=== PATIENT | female | born 1985 | race Caucasian/White ===

== ENCOUNTER 2020-04-21 12:40 | Emergency (ER) | payer OTHER ==
[~2020-04-21] VITALS: Ht 162.6 cm; Wt 120.2 kg
[2020-04-21 12:56] VITALS: BP 142/78
--- NOTE | 2020-04-21 13:11 | NUR ---
Patient being evaluated by Dr. Raines at bedside.
--- NOTE | 2020-04-21 13:12 | NUR ---
37 Y/O PATIENT C/O PELVIC CRAMPING/ NAUSEA AND DIZZINESS FOR A FEW WEEKS. PATIENT STATES HER LMP 04/09/20. DENIES ANY DYSURIA OR BACK PAIN. ONE EPISODE OF VOMITING WAS REPORTED YESTERDAY. ABD IS TENDER AND NOT BLOATED. BOWEL SOUNDS NORMOACTIVE IN ALL QUADRANTS. PATIENT IS AMBULATORY WITH STEADY GAIT. PMH: ANXIETY ALLERGIES: CODEINE
--- NOTE | 2020-04-21 13:22 | NUR ---
US tech at bedside for exam.
[2020-04-21 13:38] LABS: BASOPHILS # (AUTO) 0.1 K/uL (0.00-0.22); EOSINOPHILS # (AUTO) 0.2 K/uL (0-0.4); EOSINOPHILS % (AUTO) 2.1 % (0.0-4.0); HEMATOCRIT 42.5 % (36-48); HEMOGLOBIN 14.2 g/dL (12.0-16.0); LYMPHOCYTES # (AUTO) 2.1 K/uL (2.5-16.5); LYMPHOCYTES % (AUTO) 19.7 % (20.5-51.1); MEAN CORPUSCULAR HEMOGLOBIN 32 pg (27-31); MEAN CORPUSCULAR HGB CONC 34 g/dL (33-37); MEAN CORPUSCULAR VOLUME 94.9 fL (80-94); MONOCYTES # (AUTO) 0.6 K/uL (0.8-1.0); MONOCYTES % (AUTO) 5.1 % (1.7-9.3); NEUTROPHILS # (AUTO) 7.8 K/uL (1.8-7.7); NEUTROPHILS % (AUTO) 72.1 % (42.2-75.2); PLATELET COUNT (AUTO) 236 K/uL (140-450); RED BLOOD CELL COUNT(AUTO) 4.48 MIL/uL (4.20-5.40); RED CELL DISTRIBUTION WIDTH 13.3 % (11.6-13.7); WHITE BLOOD COUNT (AUTO) 10.9 K/uL (4.8-10.8)
[2020-04-21 14:47] LABS: APPEARANCE,URINE CLEAR (CLEAR); BILIRUBIN,URINE NEGATIVE (NEGATIVE); BLOOD, URINE TRACE-L (NEGATIVE); COLOR,URINE YELLOW (YELLOW); LEUKOCYTE ESTERASE ,URINE NEGATIVE (NEGATIVE); NITRITE, URINE NEGATIVE (NEGATIVE); UGLUCOSE NEGATIVE (NEGATIVE)
--- NOTE | 2020-04-21 15:29 | NUR ---
Dr. Love is evaluating the patient at bedside.
[2020-04-21 15:33] VITALS: BP 142/78
--- NOTE | 2020-04-21 15:34 | NUR ---
Patient discharged with v/s stable. Written and verbal after care instructions given and explained. Patient verbalized understanding. Ambulatory with steady gait. All questions addressed prior to discharge. Advised to follow up with PMD.
== END 2020-04-21 15:34 | disposition home or self-care (01) ==
LOC: EDBD 12:40 → MED 12:40
DX: R03.0 Elevated blood-pressure reading, without diagnosis of hypertension (principal); F17.200 Nicotine dependence, unspecified, uncomplicated; R42 Dizziness and giddiness; R11.2 Nausea with vomiting, unspecified; F41.9 Anxiety disorder, unspecified; Z88.5 Allergy status to narcotic agent
CPT/HCPCS: 36415; 76817; 81003; 81025; 84702; 85025; 86900; 86901; 99284

== ENCOUNTER 2020-04-23 09:17 | Emergency (ER) | payer OTHER ==
[~2020-04-23] VITALS: Ht 162.6 cm; Wt 122.5 kg
[2020-04-23 09:23] VITALS: BP 122/97
--- NOTE | 2020-04-23 09:30 | NUR ---
FOLLOW UP FOR HCG BLOOD TEST. LMP 04/07/20. [id number]. TESTED +. SEEN HERE 04/21/20. C/O NAUSEA. DENIES PAIN AT THIS TIME. PMH: PREHYPERTENSION
--- NOTE | 2020-04-23 09:34 | NUR ---
Patient being evaluated by DR SUMNER at bedside.
[2020-04-23 10:26] LABS: BASOPHILS % (AUTO) 0.3 % (0.0-2.0); EOSINOPHILS # (AUTO) 0.2 K/uL (0-0.4); EOSINOPHILS % (AUTO) 2.2 % (0.0-4.0); HEMATOCRIT 41.8 % (36-48); LYMPHOCYTES # (AUTO) 2.2 K/uL (2.5-16.5); LYMPHOCYTES % (AUTO) 20.9 % (20.5-51.1); MEAN CORPUSCULAR HEMOGLOBIN 32 pg (27-31); MEAN CORPUSCULAR HGB CONC 33 g/dL (33-37); MEAN CORPUSCULAR VOLUME 94.8 fL (80-94); MONOCYTES # (AUTO) 0.6 K/uL (0.8-1.0); MONOCYTES % (AUTO) 6.3 % (1.7-9.3); NEUTROPHILS # (AUTO) 7.3 K/uL (1.8-7.7); NEUTROPHILS % (AUTO) 70.3 % (42.2-75.2); PLATELET COUNT (AUTO) 222 K/uL (140-450); RED BLOOD CELL COUNT(AUTO) 4.41 MIL/uL (4.20-5.40); RED CELL DISTRIBUTION WIDTH 13.4 % (11.6-13.7); WHITE BLOOD COUNT (AUTO) 10.4 K/uL (4.8-10.8)
[2020-04-23 10:36] LABS: APPEARANCE,URINE CLEAR (CLEAR); BILIRUBIN,URINE NEGATIVE (NEGATIVE); BLOOD, URINE TRACE-I (NEGATIVE); COLOR,URINE YELLOW (YELLOW); LEUKOCYTE ESTERASE ,URINE NEGATIVE (NEGATIVE); NITRITE, URINE NEGATIVE (NEGATIVE); PH,URINE 7.5 (5.0-9.0); UGLUCOSE NEGATIVE (NEGATIVE)
[2020-04-23 10:41] LABS: RBC,URINE 0-5 /HPF (0-5); WBC,URINE 0-5 /HPF (0-5)
--- NOTE | 2020-04-23 14:32 | NUR ---
Patient being reevaluated by DR SUMNER at bedside.
[2020-04-23 14:40] VITALS: BP 116/86
== END 2020-04-23 14:40 | disposition home or self-care (01) ==
LOC: MED 09:17
DX: O02.1 Missed abortion (principal); I10 Essential (primary) hypertension; Z88.5 Allergy status to narcotic agent
CPT/HCPCS: 36415; 76817; 81001; 84702; 85025; 99284

== ENCOUNTER 2020-06-14 11:35 | Emergency (ER) | payer OTHER ==
[~2020-06-14] VITALS: Ht 162.6 cm; Wt 104.3 kg
[2020-06-14 11:38] VITALS: BP 112/73
--- NOTE | 2020-06-14 11:42 | NUR ---
AMBULATED TO BED 8
--- NOTE | 2020-06-14 11:44 | NUR ---
Said at bedside examining patient
[2020-06-14] MEDS ORDERED: ACETAMINOPHEN 325 MG TAB PO ONE (11:50)
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
--- NOTE | 2020-06-14 12:05 | NUR ---
Ultrasound at bedside
[2020-06-14 12:12] LABS: BASOPHILS % (AUTO) 0.4 % (0.0-2.0); EOSINOPHILS # (AUTO) 0.2 K/uL (0-0.4); EOSINOPHILS % (AUTO) 1.7 % (0.0-4.0); HEMATOCRIT 40.9 % (36-48); HEMOGLOBIN 13.7 g/dL (12.0-16.0); LYMPHOCYTES # (AUTO) 1.9 K/uL (2.5-16.5); LYMPHOCYTES % (AUTO) 15.7 % (20.5-51.1); MEAN CORPUSCULAR HEMOGLOBIN 32 pg (27-31); MEAN CORPUSCULAR HGB CONC 34 g/dL (33-37); MEAN CORPUSCULAR VOLUME 93.8 fL (80-94); MONOCYTES # (AUTO) 0.7 K/uL (0.8-1.0); MONOCYTES % (AUTO) 5.9 % (1.7-9.3); NEUTROPHILS # (AUTO) 9.1 K/uL (1.8-7.7); NEUTROPHILS % (AUTO) 76.3 % (42.2-75.2); PLATELET COUNT (AUTO) 257 K/uL (140-450); RED BLOOD CELL COUNT(AUTO) 4.36 MIL/uL (4.20-5.40); RED CELL DISTRIBUTION WIDTH 13.2 % (11.6-13.7)
[2020-06-14 12:27] LABS: APPEARANCE,URINE CLOUDY (CLEAR); BILIRUBIN,URINE 1+ (NEGATIVE); BLOOD, URINE 3+ (NEGATIVE); COLOR,URINE RED (YELLOW); LEUKOCYTE ESTERASE ,URINE TRACE (NEGATIVE); NITRITE, URINE POSITIVE (NEGATIVE); UGLUCOSE NEGATIVE (NEGATIVE)
[2020-06-14 12:36] LABS: ALBUMIN 3.2 g/dL (3.4-5.0); ANION GAP 10.6 (8-16); CARBON DIOXIDE 29.5 mmol/L (21-32); CREATININE 0.7 mg/dL (0.6-1.3); POTASSIUM 4.1 mmol/L (3.5-5.1); TOTAL BILIRUBIN 0.4 mg/dL (0.0-1.0)
[2020-06-14 12:39] LABS: RBC,URINE 80-100 /HPF (0-5)
[2020-06-14 12:40] LABS: WBC,URINE 0-5 /HPF (0-5)
[2020-06-14 12:40] LABS: PROTHROMBIN TIME 9.3 secs (10.8-13.4)
[2020-06-14 12:41] LABS: URINE AMORPHOUS URATE 1+ /HPF (None Seen)
[2020-06-14] MEDS ORDERED: HYDROcodone/APAP 5/325 MG 1 TAB TAB PO ONE (13:20)
[2020-06-14] MEDS ORDERED: ACET-2619 PO (13:49)
[2020-06-14] MEDS ORDERED: PYR100 PO (13:49)
[2020-06-14] MEDS ORDERED: CEPH250C16 PO (13:49)
[2020-06-14 13:54] VITALS: BP 114/74
--- NOTE | 2020-06-14 13:54 | NUR ---
Patient discharged with v/s stable. Written and verbal after care instructions given and explained. Patient alert, oriented and verbalized understanding of instructions. Ambulatory with steady gait. All questions addressed prior to discharge. ID band removed. Patient advised to follow up with PMD. Rx of ACETAMINOPHEN, CEPHALEXIN, AND PYRIDIUM given. Patient educated on indication of medication including possible reaction and side effects. Opportunity to ask questions provided and answered.
== END 2020-06-14 13:54 | disposition home or self-care (01) ==
LOC: MED 11:35
DX: N93.9 Abnormal uterine and vaginal bleeding, unspecified (principal); N39.0 Urinary tract infection, site not specified; D72.829 Elevated white blood cell count, unspecified; R89.1 Abnormal level of hormones in specimens from other organs, systems and tissues; I10 Essential (primary) hypertension
CPT/HCPCS: 36415; 76830; 80053; 81001; 84702; 85025; 85610; 85730; 87086; 99284

== ENCOUNTER 2020-10-18 15:21 | Emergency (ER) | payer OTHER ==
[~2020-10-18] VITALS: Ht 165.1 cm; Wt 117.5 kg
[~2020-10-18 15:21] MED LIST: ACET-2619 PO; CEPH250C16 PO; PYR100 PO
[2020-10-18 15:26] VITALS: BP 111/74
--- NOTE | 2020-10-18 15:29 | NUR ---
Patient ambulated to bed 5. RN evaluating the patient at bedside.
--- NOTE | 2020-10-18 15:39 | NUR ---
DR CHOWDHURY AT BEDSIDE FOR EXAM AND EVAL, ORDERS RECEIVED.
[2020-10-18] MEDS ORDERED: KETOROLAC 30 MG/ML VIAL IM ONE (15:40)
--- NOTE | 2020-10-18 15:45 | NUR ---
35 Y/O FEMALE RECEIVED GUARDING RIGHT ELBOW, C/O SEVERE ELBOW PAIN, ONSET 3 WEEKS AGO, WORSENING. NO OBVIOUS DEFORMITY OR SWELLING NOTED, DISTAL PULSES INTACT, ROM DECREASED DUE TO PAIN. ONLY MEDICAL HISTORY IS ANXIETY. RESTING IN BED IN LOW POSITION WITH RIGHT ARM ELEVATED ON A PILLOW FOR COMFORT, DECLINES ICE.
[2020-10-18] MEDS ORDERED: NAPR-54 PO (16:46)
[2020-10-18] MEDS ORDERED: HYDROcodone/APAP 5/325 MG 1 TAB TAB PO ONE (16:55)
[2020-10-18 17:07] VITALS: BP 111/74
== END 2020-10-18 17:07 | disposition home or self-care (01) ==
LOC: MED 15:21
DX: M77.11 Lateral epicondylitis, right elbow (principal); I10 Essential (primary) hypertension; Z88.5 Allergy status to narcotic agent; Z79.899 Other long term (current) drug therapy; Z98.890 Other specified postprocedural states
CPT/HCPCS: 73080; 96372; 99283; J1885

== ENCOUNTER 2021-01-27 00:05 | Emergency (ER) | payer OTHER ==
[~2021-01-27] VITALS: Ht 162.6 cm; Wt 117.9 kg
[~2021-01-27 00:05] MED LIST changes: +NAPR-54 PO
[2021-01-27 00:19] VITALS: BP 126/67
--- NOTE | 2021-01-27 00:23 | NUR ---
sent to lobby via w/c
--- NOTE | 2021-01-27 01:07 | NUR ---
Dr. Harris examining patient.
[2021-01-27] MEDS ORDERED: ACETAMINOPHEN 325 MG TAB PO ONE (01:15)
[2021-01-27] MEDS ORDERED: NACL 0.9% 1,000 ML IV ONE (01:15)
[2021-01-27 01:33] LABS: BASOPHILS # (AUTO) 0.1 K/uL (0.00-0.22); BASOPHILS % (AUTO) 0.4 % (0.0-2.0); EOSINOPHILS # (AUTO) 0.3 K/uL (0-0.4); EOSINOPHILS % (AUTO) 1.7 % (0.0-4.0); HEMATOCRIT 37.8 % (36-48); HEMOGLOBIN 12.6 g/dL (12.0-16.0); LYMPHOCYTES % (AUTO) 13.2 % (20.5-51.1); MEAN CORPUSCULAR HEMOGLOBIN 31 pg (27-31); MEAN CORPUSCULAR HGB CONC 33 g/dL (33-37); MEAN CORPUSCULAR VOLUME 94.2 fL (80-94); MONOCYTES # (AUTO) 0.9 K/uL (0.8-1.0); NEUTROPHILS # (AUTO) 11.8 K/uL (1.8-7.7); NEUTROPHILS % (AUTO) 78.7 % (42.2-75.2); PLATELET COUNT (AUTO) 283 K/uL (140-450); RED BLOOD CELL COUNT(AUTO) 4.01 MIL/uL (4.20-5.40); RED CELL DISTRIBUTION WIDTH 13.1 % (11.6-13.7)
[2021-01-27 01:33] LABS: APPEARANCE,URINE SL CLOUDY (CLEAR); BILIRUBIN,URINE NEGATIVE (NEGATIVE); BLOOD, URINE 2+ (NEGATIVE); COLOR,URINE YELLOW (YELLOW); LEUKOCYTE ESTERASE ,URINE TRACE (NEGATIVE); NITRITE, URINE POSITIVE (NEGATIVE); PH,URINE 5.5 (5.0-9.0); UGLUCOSE NEGATIVE (NEGATIVE)
--- NOTE | 2021-01-27 01:33 | NUR ---
PT TAKEN TO ER BED 9
--- NOTE | 2021-01-27 01:35 | NUR ---
35 YO bib self with c/c of 10/10 pelvic pain that started x1-2hrs ago. denies taking pain medication. patient has been bleeding throughout . G4A1L2 pmh: anxiety allergies: codeine
[2021-01-27 01:44] LABS: RBC,URINE 0-5 /HPF (0-5)
[2021-01-27 01:49] LABS: ALBUMIN 3.4 g/dL (3.4-5.0); CARBON DIOXIDE 28.2 mmol/L (21-32); CREATININE 0.7 mg/dL (0.6-1.3); POTASSIUM 4.2 mmol/L (3.5-5.1); TOTAL BILIRUBIN 0.4 mg/dL (0.0-1.0)
--- NOTE | 2021-01-27 02:24 | NUR ---
ultrasound at bedside. will retry iv after.
[2021-01-27] MEDS ORDERED: cephALEXin 500 MG CAP PO ONE (02:25)
[2021-01-27] MEDS ORDERED: CEPH-588 PO (03:17)
== END 2021-01-27 03:25 | disposition home or self-care (01) ==
LOC: MED 00:05
DX: O20.0 Threatened abortion (principal); R19.00 Intra-abdominal and pelvic swelling, mass and lump, unspecified site; D25.9 Leiomyoma of uterus, unspecified; Z88.5 Allergy status to narcotic agent; Z79.899 Other long term (current) drug therapy
CPT/HCPCS: 36415; 76817; 80053; 81001; 84702; 85025; 86900; 86901; 87086; 96360; 99284; J7030; Q0092

== ENCOUNTER 2021-01-27 06:30 | Emergency (ER) | payer OTHER ==
[~2021-01-27] VITALS: Ht 162.6 cm; Wt 95.3 kg
[~2021-01-27 06:30] MED LIST changes: +CEPH-588 PO
[2021-01-27 06:38] VITALS: BP 111/68
--- NOTE | 2021-01-27 06:43 | NUR ---
patient ambulated to bed 10
--- NOTE | 2021-01-27 06:46 | NUR ---
35 yo f bib self was here early this morning for pelvic pain that started this morning. 10 pain and is still currently a 01/10. ERMD brought patient back for a recheck for possible ectopic found in ultrasound. patient 7wks and has been bleeding throughout . G4A1L2 pmh: anxiety allergies: codeine
--- NOTE | 2021-01-27 07:20 | NUR ---
report given to serenity workman. transfer of care at this time.
[2021-01-27 07:39] VITALS: BP 111/68
== END 2021-01-27 07:40 | disposition home or self-care (01) ==
LOC: MED 06:30
DX: O20.0 Threatened abortion (principal); O34.80 Maternal care for other abnormalities of pelvic organs, unspecified trimester; N83.299 Other ovarian cyst, unspecified side; O23.40 Unspecified infection of urinary tract in pregnancy, unspecified trimester; N39.0 Urinary tract infection, site not specified; Z79.899 Other long term (current) drug therapy; Z88.5 Allergy status to narcotic agent
CPT/HCPCS: 99283

== ENCOUNTER 2021-12-23 13:03 | Emergency (ER) | payer OTHER ==
[~2021-12-23] VITALS: Ht 165.1 cm; Wt 124.3 kg
[2021-12-23 13:06] VITALS: BP 122/78
[2021-12-23] MEDS ORDERED: DIPH25TA53 PO (13:31)
[2021-12-23] MEDS ORDERED: FAMO-92 PO (13:31)
[2021-12-23] MEDS ORDERED: PRED20TA5 PO (13:31)
--- NOTE | 2021-12-23 13:35 | NUR ---
Patient discharged with v/s stable. Written and verbal after care instructions given. Patient alert, oriented and verbalized understanding of instructions. Ambulatory with steady gait. All questions addressed prior to discharge. ID band removed. Patient advised to follow up with PMD. Rx of Benadryl, Famotidine and Prednisone given. Opportunity to ask questions provided and answered.
== END 2021-12-23 13:35 | disposition home or self-care (01) ==
LOC: MED 13:03
DX: L50.9 Urticaria, unspecified (principal); R03.0 Elevated blood-pressure reading, without diagnosis of hypertension; Z88.5 Allergy status to narcotic agent
CPT/HCPCS: 99283

== ENCOUNTER 2021-12-29 14:07 | Emergency (ER) | payer OTHER ==
[~2021-12-29] VITALS: Ht 165.1 cm; Wt 124.7 kg
[~2021-12-29 14:07] MED LIST changes: +DIPH25TA53 PO; +FAMO-92 PO; +PRED20TA5 PO
[2021-12-29 14:13] VITALS: BP 120/83
--- NOTE | 2021-12-29 15:05 | NUR ---
PA Gordon evaluating patient at bedside.
[2021-12-29] MEDS ORDERED: KETOROLAC 30 MG/ML VIAL IM ONE (15:20)
[2021-12-29] MEDS ORDERED: predniSONE 20 MG TAB PO ONE (15:20)
[2021-12-29] MEDS ORDERED: IBUP-2213 PO (15:52)
[2021-12-29] MEDS ORDERED: PRED20TA5 PO (15:52)
[2021-12-29] MEDS ORDERED: NITR100C7 PO (15:59)
[2021-12-29 16:10] VITALS: BP 125/69
--- NOTE | 2021-12-29 16:10 | NUR ---
Patient discharged with v/s stable. Written and verbal after care instructions given. Patient alert, oriented and verbalized understanding of instructions. Ambulatory with steady gait. All questions addressed prior to discharge. ID band removed. Patient advised to follow up with PMD. Rx of IBUPROFEN, MACROBID AND DELTASONE given. Opportunity to ask questions provided and answered.
--- NOTE | 2021-12-29 16:11 | NUR ---
The patient's care was reviewed and supervised by Carol Carroll RN.
== END 2021-12-29 16:10 | disposition home or self-care (01) ==
LOC: MED 14:07
DX: N39.0 Urinary tract infection, site not specified (principal); F41.9 Anxiety disorder, unspecified; Z88.5 Allergy status to narcotic agent
CPT/HCPCS: 81002; 81025; 87086; 96372; 99283; J1885; J7512

== ENCOUNTER 2023-01-14 13:11 | Emergency (ER) | payer OTHER ==
[~2023-01-14] VITALS: Ht 162.6 cm; Wt 102.1 kg
[~2023-01-14 13:11] MED LIST changes: +IBUP-2213 PO; +NITR100C7 PO
[2023-01-14 13:19] VITALS: BP 120/84; PULSE 102; RESP 20; TEMP 99.5; O2SAT 99
[2023-01-14] MEDS ORDERED: KETOROLAC 30 MG/ML VIAL IM ONE (13:55)
[2023-01-14 14:36] LABS: FLU A ANTIGEN negative (NEGATIVE); FLU B ANTIGEN negative (NEGATIVE)
[2023-01-14 14:42] LABS: APPEARANCE,URINE CLEAR (CLEAR); BILIRUBIN,URINE 1+ (NEGATIVE); BLOOD, URINE NEGATIVE (NEGATIVE); COLOR,URINE YELLOW (YELLOW); LEUKOCYTE ESTERASE ,URINE 2+ (NEGATIVE); NITRITE, URINE POSITIVE (NEGATIVE); PROTEIN,URINE 1+ (NEGATIVE); UGLUCOSE NEGATIVE (NEGATIVE)
[2023-01-14 15:01] LABS: BACTERIA,URINE >30 (MANY) /HPF (None Seen); ICTOTEST NEGATIVE (NEGATIVE); MUCUS,URINE None Seen /LPF (None Seen); RBC,URINE 0-5 /HPF (0-5); SQUAMOUS EPITHELIAL CELL,UR 0-3 (FEW) /LPF (0-3 (FEW)); TRICHOMONAS,URINE None Seen /HPF (None Seen); WHITE BLOOD CELL CASTS,URINE None Seen /LPF (None Seen); YEAST,URINE None Seen /HPF (None Seen)
[2023-01-14] MEDS ORDERED: CEPH250C16 PO (15:08)
[2023-01-14] MEDS ORDERED: IBUP-1842 PO (15:13)
[2023-01-14] MEDS ORDERED: KETOROLAC 30 MG/ML VIAL ONE (15:43)
== END 2023-01-14 15:52 | disposition home or self-care (01) ==
LOC: MED 13:11
DX: B34.9 Viral infection, unspecified (principal); N39.0 Urinary tract infection, site not specified; Z20.822 Contact with and (suspected) exposure to COVID-19; F41.9 Anxiety disorder, unspecified; Z79.899 Other long term (current) drug therapy; Z79.1 Long term (current) use of non-steroidal anti-inflammatories (NSAID); Z79.2 Long term (current) use of antibiotics; Z88.5 Allergy status to narcotic agent
CPT/HCPCS: 81001; 81025; 87081; 87086; 87426; 87804; 96372; 99283; J1885